=== PATIENT | male | born 1970 | race Caucasian/White ===

== ENCOUNTER → 2016-10-08 | Outpatient (REF) | payer BC ==
[~2016-10-08] MED LIST: /QUIN20TA PO; AUGM500T34 PO; BACIDCA PO; PERC7.5T12 PO; TYLE325T5 PO
[2016-10-08 12:17] LABS: ALBUMIN/GLOBULIN RATIO 1.38 (1.00-1.93); ALKALINE PHOSPHATASE 88 U/L (45-117); ALT/SGPT 31 U/L (12-78); ANION GAP 9 MEQ/L (8-16); AST/SGOT 16 U/L (15-37); BILIRUBIN,TOTAL 0.4 MG/DL (0.2-1.0); BLOOD UREA NITROGEN 22 MG/DL (7-18); CALCIUM LEVEL 8.9 MG/DL (8.5-10.1); CARBON DIOXIDE LEVEL 28 MEQ/L (21-32); CHLORIDE LEVEL 107 MEQ/L (98-107); CHOLESTEROL LEVEL 226 MG/DL (<200); CREATININE FOR GFR 0.99 MG/DL (0.70-1.30); GLOMERULAR FILTRATION RATE > 60.0 (>60); GLUCOSE, FASTING 121 MG/DL (70-105); POTASSIUM SERUM 4.4 MEQ/L (3.5-5.1); SODIUM LEVEL 144 MEQ/L (136-145); TOTAL PROTEIN 6.9 GM/DL (6.4-8.2); TRIGLYCERIDES LEVEL 213 MG/DL (<150)
== END ==
LOC: M LABDRAW1 11:21
PROVIDERS: ATTEND Emergency Medicine
DX: E78.2 Mixed hyperlipidemia (principal); R73.01 Impaired fasting glucose; N40.0 Benign prostatic hyperplasia without lower urinary tract symptoms
CPT/HCPCS: 36415; 80053; 80061; 83036; G0103

== ENCOUNTER → 2016-11-10 | Outpatient (CLI) | payer BC ==
[~2016-11-10] MED LIST changes: +LOSA50TA20 PO; +OMEP40CA2 PO
[2016-11-10 16:40] LABS: MEAN CORPUSCULAR HEMOGLOBIN 30.2 pg (27.0-33.0); MEAN CORPUSCULAR HGB CONC 34.9 g/dl (32.0-36.5); MEAN CORPUSCULAR VOLUME 86.6 fl (80.0-96.0); PLATELET COUNT, AUTOMATED 242 k/mm3 (150-450); RED CELL DISTRIBUTION WIDTH 12.7 % (11.5-14.5); WHITE BLOOD COUNT 10.1 K/mm3 (4.0-10.0)
[2016-11-10 16:49] LABS: ALBUMIN 3.8 GM/DL (3.2-5.2); ALBUMIN/GLOBULIN RATIO 1.41 (1.00-1.93); ALKALINE PHOSPHATASE 86 U/L (45-117); ALT/SGPT 29 U/L (12-78); ANION GAP 11 MEQ/L (8-16); AST/SGOT 12 U/L (15-37); BILIRUBIN,TOTAL 0.6 MG/DL (0.2-1.0); BLOOD UREA NITROGEN 21 MG/DL (7-18); CALCIUM LEVEL 8.1 MG/DL (8.5-10.1); CARBON DIOXIDE LEVEL 24 MEQ/L (21-32); CHLORIDE LEVEL 106 MEQ/L (98-107); CREATININE FOR GFR 1.09 MG/DL (0.70-1.30); GLOMERULAR FILTRATION RATE > 60.0 (>60); GLUCOSE, FASTING 124 MG/DL (70-105); POTASSIUM SERUM 3.4 MEQ/L (3.5-5.1); SODIUM LEVEL 141 MEQ/L (136-145); TOTAL PROTEIN 6.5 GM/DL (6.4-8.2)
[2016-11-11 09:43] LABS: CONTROL LINE MONO RF C INT CTR LINE PRESENT
[2016-11-13 00:06] LABS: Lyme Disease IgG/IgM Antibodie <0.91 ISR (0.00-0.90); Lyme Disease IgM Ab Quantitati <0.80 index (0.00-0.79)
== END ==
LOC: M ADAMS 13:28
PROVIDERS: ATTEND Physician Assistant Medical
DX: M79.1 Myalgia (principal)

== ENCOUNTER 2016-11-12 11:15 | Observation (INO) | payer BC ==
[~2016-11-12] VITALS: Ht 167.6 cm; Wt 90.7 kg
[~2016-11-12 11:15] MED LIST changes: -LOSA50TA20 PO; -OMEP40CA2 PO
[2016-11-12] MEDS ORDERED: OMEP40CA2 PO (11:39)
[2016-11-12] MEDS ORDERED: LOSA50TA20 PO (11:40)
[2016-11-12] MEDS ORDERED: NS 1,000 ML IV ONE ×4 (12:15→13:45)
[2016-11-12] MEDS ORDERED: ONDANSETRON 4MG/2ML VIAL (J2405) IV ONE (12:15)
[2016-11-12 13:11] LABS: BASO % 0.3 % (0.0-1.0); EOS # 0.1 K/mm3 (0.0-0.50); EOS % 0.7 % (0.0-3.0); LARGE UNSTAINED CELL # 0.2 K/mm3 (0.0-0.4); LARGE UNSTAINED CELL % 2.7 % (0.0-4.0); LYMPH # 0.8 K/mm3 (1.5-4.5); LYMPH % 9.6 % (24.0-44.0); MEAN CORPUSCULAR HEMOGLOBIN 30.6 pg (27.0-33.0); MEAN CORPUSCULAR HGB CONC 35.3 g/dl (32.0-36.5); MEAN CORPUSCULAR VOLUME 86.6 fl (80.0-96.0); MONO # 0.7 K/mm3 (0.0-0.8); NEUTROPHILS # 6.3 K/mm3 (1.8-7.7); NEUTROPHILS % 77.7 % (36.0-66.0); PLATELET COUNT, AUTOMATED 287 k/mm3 (150-450); RED CELL DISTRIBUTION WIDTH 12.8 % (11.5-14.5); WHITE BLOOD COUNT 8.1 K/mm3 (4.0-10.0)
[2016-11-12 13:14] LABS: ALBUMIN 4.5 GM/DL (3.2-5.2); ALBUMIN/GLOBULIN RATIO 0.92 (1.00-1.93); ALKALINE PHOSPHATASE 105 U/L (45-117); ALT/SGPT 32 U/L (12-78); AMYLASE 56 U/L (25-115); ANION GAP 13 MEQ/L (8-16); AST/SGOT 20 U/L (15-37); BILIRUBIN,DIRECT 0.1 MG/DL (0.0-0.2); BILIRUBIN,TOTAL 0.5 MG/DL (0.2-1.0); BLOOD UREA NITROGEN 41 MG/DL (7-18); CARBON DIOXIDE LEVEL 19 MEQ/L (21-32); CHLORIDE LEVEL 101 MEQ/L (98-107); CREATININE FOR GFR 3.92 MG/DL (0.70-1.30); GLOMERULAR FILTRATION RATE 17.6 (>60); GLUCOSE, FASTING 160 MG/DL (70-105); POTASSIUM SERUM 3.9 MEQ/L (3.5-5.1); SODIUM LEVEL 133 MEQ/L (136-145); TOTAL PROTEIN 9.4 GM/DL (6.4-8.2)
--- NOTE | 2016-11-12 14:06 | REP ---
AP PORTABLE CHEST: 11/12/2016 COMPARISON: 07/29/2013. CLINICAL HISTORY: Vomiting, diarrhea, abdominal pain. FINDINGS: Lungs are well inflated and without infiltrate, effusion, atelectasis or mass. The CP angle is sharply defined. There is no lateral pleural thickening or apical scarring. The heart, mediastinal and hilar contours are normal. Airway intact. No widening of the mediastinum. Bones unremarkable. No free air. IMPRESSION: 1. No acute cardiopulmonary change. Stable chest. Signed by Skyler Owens MD 11/12/2016 05:08 P
[2016-11-12] MEDS ORDERED: ACETAMINOPHEN TAB 650MG DOSE (2X325MG) PO PRN (14:15)
[2016-11-12] MEDS ORDERED: ONDANSETRON 4MG/2ML VIAL (J2405) IV PRN (14:15)
--- NOTE | 2016-11-12 14:21 | REP ---
CT abdomen and pelvis without IV or bowel contrast: Comparison is 06/26/2013. The patient is a history of ulcerative colitis. The visualized lung calabrese are unremarkable. The unenhanced hepatic parenchyma is homogeneous and unremarkable. There is cholelithiasis without evidence of acute cholecystitis. This is unchanged. There is no biliary duct dilatation. The pancreas and spleen are normal size and unremarkable. The adrenals and kidneys are unchanged. There is a parapelvic cyst at the lower pole of the right kidney and there is a nonobstructive renal calculus at the lower pole right kidney. These are unchanged. There is no hydronephrosis on the right on the left. The abdominal aorta is unremarkable. The bowel pattern is unusual. There is an anastomotic surgical suture ring in the right lower quadrant and there are longitudinal sutures along the bowel in the rectosigmoid area. This is unchanged. With the history of ulcerative colitis the the patient may have had a total colectomy and a J pouch surgery. There is a surgical scar in the abdominal wall in the right lower quadrant suggestive of ileostomy has been taken down. There is no bowel distension or obstruction. There is no ascites. There is no adenopathy. Pelvis: The bladder is unremarkable. There is no adenopathy or ascites. Impression: Postsurgical changes as described. No evidence of bowel distension or obstruction. No ascites. No inflammatory changes in the mesentery. Nonobstructive right renal calculus. Right renal parapelvic cyst. These are unchanged. Cholelithiasis without gallbladder dilatation or the biliary duct dilatation. Signed by Nazario Guerrero MD 11/12/2016 02:12 P
--- NOTE | 2016-11-12 15:06 | HPE ---
DATE OF ADMISSION: 11/12/2016 PRIMARY CARE PROVIDER: Dr. Bergman CODE STATUS: FULL CODE. CHIEF COMPLAINT: Myalgia, generalized weakness, nausea, vomiting, unable to tolerate oral intake at home. HISTORY OF PRESENT ILLNESS: This is a pleasant 46-year-old male patient of Dr. Hugo Bergman who presents to the emergency department with history of nausea, vomiting, and diarrhea for the last 3-4 days, progressively worse. He has had some subjective chills, no rigors, but has had myalgia and generalized weakness today. He is unable to definitively state that he had a fever at home, but felt that he did have some subjective symptoms of fever. He denies any hematochezia or melena. He does have a history of ulcerative colitis which she had a total colectomy done in 1992 and has had followup biopsies of perirectal abscess that was done in 2008 and has not had any problems since then. He denies lightheadedness, dizziness, fainting, no loss of consciousness. Denies productive sputum, cough, or hemoptysis. PAST MEDICAL HISTORY: 1. Hypertension. 2. Ulcerative colitis. PAST SURGICAL HISTORY: 1. Total colon resection in 1992. 2. 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 FAMILY HISTORY: Noncontributory. SOCIAL HISTORY: The patient drinks alcohol occasionally with one to two drinks per week. Denies tobacco use. Denies illicit drug use. No recent travel. No sick contacts. ALLERGIES: 1. DOXYCYCLINE. HOME MEDICATIONS: - omeprazole 40 mg twice a day - losartan 50 mg daily REVIEW OF SYSTEMS: CONSTITUTIONAL: Subjective fevers, chills, but no rigors. Has had decreased oral intake. Diarrhea as outlined above. HEENT: Denies headache, lightheaded, dizziness, blurry vision, double vision, tinnitus. Denies any difficulty with speech or swallow. PULMONARY: Denies productive sputum, cough, or hemoptysis. CARDIOVASCULAR: Denies chest pain, paroxysmal nocturnal dyspnea (PND), orthopnea. No lower extremity edema. GASTROINTESTINAL (GI): He has had nausea and vomiting as indicated with loose stool and diarrhea, but denies any hematochezia or melena. GENITOURINARY (): No dysuria, frequency or hematuria. MUSCULOSKELETAL: Denies bone, muscles, or joint pain, swelling or erythema, but has had some vague myalgia symptoms for the last few days. NEURO: Denies paresthesias or paralysis. LYMPHATICS: History of weight loss, night sweats. Denies lumps, bumps, swelling in the neck, axilla or groin. ENDOCRINE: Negative for diabetes. Negative for thyroid disorder. HEMATOLOGY: Negative for bleeding or bruising disorder. No prior history of venous thromboembolism. ONCOLOGY: No history of cancer. PSYCHIATRIC: Negative for depression and suicidal ideation. No audiovisual hallucinations. 10-point review of system is complete and pertinent positives are listed in history of present illness above. PHYSICAL EXAMINATION: VITAL SIGNS: Temperature 97.6, pulse 96, respiratory rate 16 and nonlabored, blood pressure 134/81, SpO2 is 93% on room air. GENERAL: The patient appears to be in no acute distress. He is alert and oriented, pleasant talk to. HEENT: Head is atraumatic, normocephalic. Eyes pupils equal, round and reactive to light and accommodation. Throat clear. NECK: Supple neck. Otherwise no thyromegaly. LUNGS: Clear to auscultation. HEART: Regular rate and rhythm. ABDOMEN: Slightly hyperactive bowel sounds. No significant tenderness. No rebound. No hepatosplenomegaly noted. EXTREMITIES: No edema. No calf tenderness. LABORATORY DATA: White count is 8.1, hemoglobin is 19.8, platelets are 287. Sodium is 133, potassium 3.9, chloride 101, bicarb 19, anion gap 13, BUN is 41, creatinine 3.92, glucose 116, lactic acid is 2.3, calcium is 10, bilirubin is 0.5, AST 20, ALT 32, alkaline phosphatase 105. CK-MB is pending at this time. Albumin is 4.5, lipase is 190. Urinalysis cloudy, 2+ protein, 1+ bilirubin, 15 WBCs, 2+ bacteria. Urine culture pending at this time. Blood cultures pending time two. Respiratory panel is pending as well. 12 lead EKG sinus rhythm with no acute ST-T wave abnormalities noted. Ventricular rate is 88 beats per minute. The ER physician did order a cardiac marker panel for suspected rhabdomyolysis. That is pending at this time; however, the patient does not have any chest pain or any acute ST-T wave changes and likely a good candidate for the medical/surgical floor. Chest x-ray no acute cardiopulmonary findings. CT abdomen and pelvis postsurgical changes related to total colectomy. No evidence of bowel distension or obstruction. No ascites. No laboratory changes. A nonobstructive right renal calculus is noted. Right renal parapelvic cyst is noted. These are unchanged from previous studies. Cholelithiasis without gallbladder dilation or biliary duct dilation was noted. IMPRESSION: Mr. Cowart is a pleasant 46-year-old patient of Dr. Bergman who presents to the emergency department for worsening symptoms of nausea, vomiting, diarrhea and myalgia for the last three days. He does appear to have some acute kidney injury related to significant dehydration with hemoconcentration noted on his CBC. He is getting multiple fluid boluses in the emergency department. His blood pressure is stable. He is hemodynamically stable. He does have an elevated lactic acid, which we can repeat a few hours. At any rate, we will admit him to medical/surgical for further care and observe him overnight. PROBLEM LIST: 1. Sepsis. 2. Gastroenteritis. 3. Acute kidney injury with dehydration. 4. History of ulcerative colitis status post colectomy. 5. Hypertension. Will hold his home medications for now. 6. History of occasional alcohol use. PLAN: The patient admitted will be admitted to medical/surgical per Dr. Chau. IV fluid bolus times three in the emergency department, then will proceed with 150 mL an hour of normal saline, Zofran IV p.r.n. for nausea. Check respiratory panel, GI panel, urine culture, blood cultures are pending. Deep vein thrombosis (DVT) prophylaxis with heparin. I do suspect this is likely related to underlying viral cause with viral gastroenteritis. He is admitted as observation overnight with fluid hydration. DISPOSITION: Will anticipate home discharge tomorrow morning if he is doing well and his kidney function appears to be trending back towards baseline. If not, if his creatinine is still severely elevated we may want to consider a nephrology consult. For the meantime, since this does appear to be related to acute event with nausea, vomiting, diarrhea, I did hold off on ordering any urine electrolytes, or renal ultrasound. Will see how he responds to conservative management with IV fluids.
[2016-11-12] MEDS ORDERED: OMEPRAZOLE 20 MG CAP PO ONE (16:30)
[2016-11-12 16:45] VITALS: BP 141/72
[2016-11-12] MEDS: HEPARIN SOD (PORCINE) 5000 UNITS/ML VIAL SQ SCH ×2 (16:59→20:26)
[2016-11-12] MEDS: NS 1,000 ML IV SCH ×2 (17:03→20:44)
--- NOTE | 2016-11-12 18:14 | ECGEPIP ---
Stationary ECG Study [facility] - ED Test Date: 2016-11-12 Pat Name: GERARDO MARIE Department: Room: [place] [address] Gender: M Contour Grinder: shailesh : 1970 Requested By: Gamaliel Benavides Order Number: [id number] Reading MD: Omar Swann Measurements Intervals Gregory Rate: 88 P: 52 IL: 187 QRS: 40 QRSD: 74 T: 23 QT: 334 QTc: 406 Interpretive Statements SINUS RHYTHM WITH SINUS ARRHYTHMIA POSSIBLE LEFT ATRIAL ENLARGEMENT POSSIBLE PRIOR INFERIOR INFARCT NO PRIORS Electronically Signed On 11-12-2016 18:13:51 EDT by Omar Swann
[2016-11-12] MEDS: OMEPRAZOLE 20 MG CAP PO SCH (20:24)
[2016-11-12 22:00] VITALS: BP 129/75
[2016-11-13] MEDS: NS 1,000 ML IV SCH ×4 (03:24→20:39)
[2016-11-13 06:00] VITALS: BP 112/75
[2016-11-13] MEDS: HEPARIN SOD (PORCINE) 5000 UNITS/ML VIAL SQ SCH ×3 (06:35→20:38)
[2016-11-13 07:21] LABS: MEAN CORPUSCULAR HEMOGLOBIN 30.5 pg (27.0-33.0); MEAN CORPUSCULAR HGB CONC 35.2 g/dl (32.0-36.5); MEAN CORPUSCULAR VOLUME 86.7 fl (80.0-96.0); RED CELL DISTRIBUTION WIDTH 12.9 % (11.5-14.5); WHITE BLOOD COUNT 4.4 K/mm3 (4.0-10.0)
[2016-11-13 07:47] LABS: CREATININE FOR GFR 1.5 MG/DL (0.70-1.30); GLOMERULAR FILTRATION RATE 53.4 (>60); POTASSIUM SERUM 3.5 MEQ/L (3.5-5.1)
[2016-11-13] MEDS: OMEPRAZOLE 20 MG CAP PO SCH ×2 (08:23→20:39)
[2016-11-13 08:42] LABS: ALBUMIN/GLOBULIN RATIO 0.91 (1.00-1.93); BILIRUBIN,TOTAL 0.4 MG/DL (0.2-1.0); MAGNESIUM LEVEL 1.9 MG/DL (1.8-2.4); TOTAL PROTEIN 6.3 GM/DL (6.4-8.2)
--- NOTE | 2016-11-13 12:04 | IPNPDOC ---
Text Note Date of Service The patient was seen on 11/13/16. NOTE Subjective: Patient is a 46 year old male with a PMHx HTN and UC (s/p colectomy) who presented to the ER with complaitns of generalized weakness, nausea, vomiting and increased frequency of stools. He was found to have Acute kidney injury and his GI panel was positive for Astrovirus (Norovirus). Patient was seen and examined at the bedside. Clinically he notes that his nausea and vomiting have resolved and that his diarrhea has decreased in frequency. Objective: Vitals (See below) General: Lying in bed, no acute distress, comfortable, AAOx3 HEENT: NC, AT CVS: RRR, +S1S2 Lungs: Fair air entry b/l, -w/r/r Abdomen: Soft, ND, NT, +BSx4 Extremities: +PPx4, - Edema, - Calf tenderness Assessment and plan: 1. Nausea, vomiting and diarrhea - likely 2/2 gastroenteritis - likely 2/2 astrovirus - Clinically improving - Physical exam un-revealing - Lactic acidosis resolved - GI Panel positive for astrovirus - c/w IV fluid support and zofran for nausea 2. Acute kidney injury - likely 2/2 pre-renal etiology - Cr on admission was 3.92; has trended down significantly - Will c/w IV fluid resuscitation until normalized 3. History of ulcerative colitis status post colectomy 4. Hypertension - will continue to hold BP medications 5. History of occasional alcohol use - c/w Multivitamins, Thiamine and Folate 6. GI prophyalxis - c/w omeprazole 7. DVT prophylaxis - c/w Heparin VS,Fishbone, I+O VS, Fishbone, I+O Laboratory Tests 11/12/16 12:39 Red Blood Count 6.46 H, Mean Corpuscular Volume 86.6, Mean Corpuscular Hemoglobin 30.6, Mean Corpuscular Hemoglobin Concent 35.3, Red Cell Distribution Width 12.8, Neutrophils (%) (Auto) 77.7 H, Lymphocytes (%) (Auto) 9.6 L, Monocytes (%) (Auto) 9.0 H, Eosinophils (%) (Auto) 0.7, Basophils (%) ( Auto) 0.3, Neutrophils # (Auto) 6.3, Lymphocytes # (Auto) 0.8 L, Monocytes # ( Auto) 0.7, Eosinophils # (Auto) 0.1, Basophils # (Auto) 0.0 11/13/16 07:02 Red Blood Count 4.99, Mean Corpuscular Volume 86.7, Mean Corpuscular Hemoglobin 30.5, Mean Corpuscular Hemoglobin Concent 35.2, Red Cell Distribution Width 12.9 , Calcium Level 8.0 #L, Aspartate Amino Transf (AST/SGOT) 17, Alanine Aminotransferase (ALT/SGPT) 21, Alkaline Phosphatase 67, Total Bilirubin 0.4, Total Protein 6.3 #L, Albumin 3.0 #L Vital Signs Date Time Temp Pulse Resp B/P Pulse Ox O2 Delivery O2 Flow Rate FiO2 11/13/16 06:00 98.3 66 18 112/75 94 Room Air I&O- Last 24 Hours up to 6 AM 11/13/16 06:00 Intake Total 600 ml Output Total 800 ml Balance -200 ml IGLESIA SIMMONS MD Nov 13, 2016 12:04
[2016-11-13 22:00] VITALS: BP 121/79
[2016-11-14] MEDS: HEPARIN SOD (PORCINE) 5000 UNITS/ML VIAL SQ SCH (05:02)
[2016-11-14] MEDS: NS 1,000 ML IV SCH (05:18)
[2016-11-14 06:00] VITALS: BP 106/55
[2016-11-14 07:06] LABS: MEAN CORPUSCULAR HEMOGLOBIN 30.1 pg (27.0-33.0); MEAN CORPUSCULAR HGB CONC 34.5 g/dl (32.0-36.5); MEAN CORPUSCULAR VOLUME 87.2 fl (80.0-96.0); RED CELL DISTRIBUTION WIDTH 12.8 % (11.5-14.5); WHITE BLOOD COUNT 5.2 K/mm3 (4.0-10.0)
[2016-11-14 07:12] LABS: ANION GAP 4 MEQ/L (8-16); BLOOD UREA NITROGEN 17 MG/DL (7-18); CALCIUM LEVEL 8.6 MG/DL (8.5-10.1); CARBON DIOXIDE LEVEL 28 MEQ/L (21-32); CHLORIDE LEVEL 112 MEQ/L (98-107); GLOMERULAR FILTRATION RATE > 60.0 (>60); GLUCOSE, FASTING 105 MG/DL (70-105); POTASSIUM SERUM 3.8 MEQ/L (3.5-5.1); SODIUM LEVEL 144 MEQ/L (136-145)
[2016-11-14] MEDS: OMEPRAZOLE 20 MG CAP PO SCH (07:59)
--- NOTE | 2016-11-14 14:55 | DSES ---
DATE OF ADMISSION: 11/12/2016 DATE OF DISCHARGE: 11/14/2016 ATTENDING PHYSICIAN: Dr. Joseph Chau PRIMARY CARE PHYSICIAN: Dr. Hugo Bergman REFERRING PHYSICIAN: None. CONSULTING PHYSICIAN: None. CONDITION ON DISCHARGE: Stable. FINAL DIAGNOSIS: 1. Nausea, vomiting, diarrhea, likely secondary to gastroenteritis. 2. Acute kidney injury. PROCEDURES: None. HISTORY OF PRESENT ILLNESS: The patient is a 36-year-old male with a past medical history of hypertension, ulcerative colitis status post colectomy who presented to the emergency room with complaints of generalized weakness, nausea, vomiting, and increased frequency of stools. He was found to have acute kidney injury and his GI panel was positive for astrovirus. HOSPITAL COURSE: 1. Nausea, vomiting, and diarrhea likely secondary to gastroenteritis, likely secondary to astrovirus. Clinically he has been improving. Physical examination is unrevealing lactic acidosis has resolved. GI panel was positive for astrovirus. Continue with IV fluid support and Zofran for nausea. 2. Acute kidney injury. Likely secondary to prerenal etiology. Creatinine on admission was 3.92 and has trended down significantly and has now normalized. He has received aggressive IV fluid hydration during his hospitalization. 3. History of ulcerative colitis status post colectomy. 4. Hypertension. Blood pressure medications continue to be on hold and upon discharge his blood pressure medications remained on hold. 5. History of occasional alcohol use. Continue with multivitamins, thymine, and folate. 6. Gastrointestinal (GI) prophylaxis. Continue with omeprazole. 7. Deep venous thrombosis (DVT) prophylaxis. Continue with heparin. DISCHARGE MEDICATIONS: Patient was discharged home with the following medication list: - omeprazole 40 mg by mouth twice a day Medications which were stopped include: - losartan 50 mg by mouth every day DISCHARGE INSTRUCTIONS: Patient has been advised to followup with his primary care provider within the next 7 days. He has been advised to remain compliant with treatment and medications and return to the emergency room if he experiences any problems. TIME SPENT ON DISCHARGE: 35 minutes.
== END 2016-11-14 11:30 | disposition left against medical advice (07) ==
LOC: M ED 12:57 → M ED INP 14:04 → M MS5PR 16:35
PROVIDERS: ADMIT Hospitalist; ATTEND Internal Medicine
DX: A08.11 Acute gastroenteropathy due to Norwalk agent (principal); N17.9 Acute kidney failure, unspecified; E86.0 Dehydration; K51.90 Ulcerative colitis, unspecified, without complications; K21.9 Gastro-esophageal reflux disease without esophagitis; I10 Essential (primary) hypertension; Z88.1 Allergy status to other antibiotic agents; Z79.899 Other long term (current) drug therapy
CPT/HCPCS: 36415; 71010; 74176; 80048; 80053; 80076; 81001; 82150; 82550; 82553; 83605; 83690; 83735; 85025; 85027; 87040; 87086; 87486; 87507; 87581; 87633; 87798; 93005; 93041; 96372; 99285; J2405

== ENCOUNTER → 2017-10-14 | Outpatient (REF) | payer BC ==
[2017-10-14 12:46] LABS: ALBUMIN/GLOBULIN RATIO 1.54 (1.00-1.93); ALKALINE PHOSPHATASE 89 U/L (45-117); ALT/SGPT 38 U/L (12-78); ANION GAP 8 MEQ/L (8-16); AST/SGOT 15 U/L (7-37); BILIRUBIN,TOTAL 0.5 MG/DL (0.2-1.0); BLOOD UREA NITROGEN 21 MG/DL (7-18); CALCIUM LEVEL 8.9 MG/DL (8.5-10.1); CARBON DIOXIDE LEVEL 29 MEQ/L (21-32); CHLORIDE LEVEL 105 MEQ/L (98-107); CHOLESTEROL LEVEL 204 MG/DL (<200); CHOLESTEROL RISK RATIO 3.849 (<5); CREATININE FOR GFR 1.07 MG/DL (0.70-1.30); GLOMERULAR FILTRATION RATE > 60.0 (>60); GLUCOSE, FASTING 119 MG/DL (70-100); HDL CHOLESTEROL 53 MG/DL (>40); LDL CHOLESTEROL 112.8 MG/DL (<100); NON-HDL-C 151 MG/DL; POTASSIUM SERUM 4.5 MEQ/L (3.5-5.1); PSA SCREENING 1.48 NG/ML (< 4.0); SODIUM LEVEL 142 MEQ/L (136-145); TOTAL PROTEIN 6.6 GM/DL (6.4-8.2); TRIGLYCERIDES LEVEL 191 MG/DL (<150)
[2017-10-14 13:08] LABS: ESTIMATED AVERAGE GLUCOSE 120 MG/DL (60-110); HEMOGLOBIN A1c 5.8 %
== END ==
LOC: M LABDRAW1 11:52
DX: E78.2 Mixed hyperlipidemia (principal); R73.01 Impaired fasting glucose; N40.0 Benign prostatic hyperplasia without lower urinary tract symptoms
CPT/HCPCS: 80053

== ENCOUNTER → 2018-02-04 | Outpatient (REF) | payer BC | LOC: M LAB REF 12:26 | DX: J02.9 Acute pharyngitis, unspecified (principal) | CPT/HCPCS: 87081 ==

== ENCOUNTER → 2018-09-02 | Outpatient (CLI) | payer BC ==
[~2018-09-02] MED LIST changes: +LOSA50TA88 PO; +OMEP40CA2 PO
[2018-09-02 13:08] LABS: BASO # 0.1 10^3/uL (0.0-0.2); BASO % 0.7 % (0.0-1.0); EOS # 0.2 10^3/uL (0.0-0.50); EOS % 2.5 % (0.0-3.0); HEMATOCRIT 42.3 % (42.0-52.0); HEMOGLOBIN 14.4 g/dl (13.5-17.5); LYMPH # 1.5 10^3/uL (1.5-4.5); LYMPH % 17.8 % (24.0-44.0); MEAN CORPUSCULAR HEMOGLOBIN 30.2 pg (27.0-33.0); MEAN CORPUSCULAR VOLUME 88.7 fl (80.0-96.0); MONO # 0.8 10^3/uL (0.0-0.8); MONO % 9.6 % (0.0-5.0); NEUTROPHILS # 5.9 10^3/uL (1.8-7.7); PLATELET COUNT, AUTOMATED 270 10^3/uL (150-450); RED BLOOD COUNT 4.77 10^6/uL (4.30-6.10); WHITE BLOOD COUNT 8.6 10^3/uL (4.0-10.0)
[2018-09-02 13:25] LABS: MONO REFLEX EBV COMP NEGATIVE (NEGATIVE)
[2018-09-04 00:10] LABS: EBV VIRAL CAPSID AG IgG 71.1 U/mL (0.0-17.9); EBV VIRAL CAPSID AG IgM <36.0 U/mL (0.0-35.9)
== END ==
LOC: M LABDRWAD 08:38
PROVIDERS: ATTEND Physician Assistant Medical
DX: J02.9 Acute pharyngitis, unspecified (principal)

== ENCOUNTER → 2020-06-23 | Outpatient (CLI) | payer BC ==
[~2020-06-23] MED LIST changes: -/QUIN20TA PO; +ACCU1TAB2 PO; +ASCO1TAB3 PO; +B-12100T2 PO; +D31000TA2 PO; +FISH1000 PO; -OMEP40CA2 PO; +OMEP40CA97 PO; +SM F10002 PO; +VITA100T59 PO
== END ==
LOC: M LABSMTC 10:22
PROVIDERS: ATTEND Anesthesiology
DX: Z01.812 Encounter for preprocedural laboratory examination (principal); Z20.828 Contact with and (suspected) exposure to other viral communicable diseases
CPT/HCPCS: C9803; U0003

== ENCOUNTER 2020-06-28 06:58 | Day surgery (SDC) | payer BC ==
[~2020-06-28] VITALS: Ht 170.2 cm; Wt 96.6 kg
[~2020-06-28 06:58] MED LIST changes: +NS 1,000 ML IV ONE
[2020-06-28] MEDS ORDERED: propofoL 200 MG/20 ML VIAL As Ordered ONE (07:11)
[2020-06-28] MEDS ORDERED: LIDOCAINE 2% 100MG/5ML SDV (FOR ANES.) As Ordered ONE (07:11)
--- NOTE | 2020-06-28 08:29 | ROOR ---
Patient Name: Phil Cowart Procedure Date: 06/28/2020 7:59 AM Date of : 1970 Age: 50 Room: [facility] Gender: Male Note Status: Finalized Procedure: Colonoscopy + biopsies at ileorectal anastomosis. Indications: Follow-up of ulcerative colitis Providers: Jaya Mcmullen MD Referring MD: Daja CANO DO Requesting Provider: Medicines: Monitored Anesthesia Care Complications: No immediate complications. Procedure: Pre-Anesthesia Assessment: - The heart rate, respiratory rate, oxygen saturations, blood pressure, adequacy of pulmonary ventilation, and response to care were monitored throughout the procedure. The Colonoscope was introduced through the anus and advanced to the rectum to examine an anastomosis. This was the intended extent. The colonoscopy was performed without difficulty. The patient tolerated the procedure well. The quality of the bowel preparation was excellent. Findings: The perianal and digital rectal examinations were normal. Non-bleeding internal hemorrhoids were found during retroflexion. The hemorrhoids were small and Grade I (internal hemorrhoids that do not prolapse). Background biopsies were taken for histology with a cold forceps from the rectum. These biopsy specimens were sent to Pathology. The exam was otherwise without abnormality. Impression: - Non-bleeding internal hemorrhoids. - The examination was otherwise normal. - Background biopsies were taken from the rectum. - The examination was otherwise normal. Recommendation: - Patient has a contact number available for emergencies. The signs and symptoms of potential delayed complications were discussed with the patient. Return to normal activities tomorrow. Written discharge instructions were provided to the patient. - Discharge patient to home. - Continue present medications. - Await pathology results. - Telephone GI clinic for pathology results in 1 week. - Return to referring physician. - The findings and recommendations were discussed with the patient. Jaya Mcmullen MD Jaya Mcmullen MD 06/28/2020 8:28:58 AM Electronically signed by Jaya Mcmullen MD Number of Addenda: 0 Note Initiated On: 06/28/2020 7:59 AM Estimated Blood Loss: Estimated blood loss: none.
[2020-06-28 08:45] VITALS: BP 119/59
== END 2020-06-28 08:48 | disposition home or self-care (01) ==
LOC: M OPP 06:58
PROVIDERS: ATTEND Internal Medicine Gastroenterology
DX: K51.90 Ulcerative colitis, unspecified, without complications (principal); K64.0 First degree hemorrhoids; I10 Essential (primary) hypertension; Z79.899 Other long term (current) drug therapy; Z88.1 Allergy status to other antibiotic agents

== ENCOUNTER → 2022-01-11 | Outpatient (REF) | payer BC ==
[~2022-01-11] MED LIST changes: -D31000TA2 PO; +LOSA50TA28 PO; -LOSA50TA88 PO; -NS 1,000 ML IV ONE; +OMEP40CA4 PO; -OMEP40CA97 PO; +VITA100093 PO
== END ==
LOC: M LAB REF 16:06
PROVIDERS: ATTEND Physician Assistant
DX: R19.7 Diarrhea, unspecified (principal)

== ENCOUNTER → 2025-08-02 | Outpatient (CLI) | payer OTHER ==
[~2025-08-02] MED LIST changes: +ELDE350C PO; +FLAX1CAP5 PO; +OMEGCAP4 PO; +OMEP-173 PO
[2025-08-02 13:46] LABS: BASO # 0.1 10^3/uL (0.0-0.2); BASO % 0.9 % (0.0-1.0); EOS # 0.2 10^3/uL (0.0-0.5); EOS % 2.5 % (0.0-3.0); LYMPH # 1.4 10^3/uL (1.5-5.0); LYMPH % 19.7 % (24.0-44.0); MONO # 0.7 10^3/uL (0.0-0.8); MONO % 9.7 % (2.0-8.0); NEUTROPHILS # 4.6 10^3/uL (1.5-8.5); NEUTROPHILS % 66.9 % (36.0-66.0); PLATELET COUNT, AUTOMATED 275 10^3/uL (150-450)
[2025-08-02 13:48] LABS: ALT/SGPT 36 U/L (7.0-40); AST/SGOT 24 U/L (<34); CALCIUM LEVEL 9.0 MG/DL (8.5-10.1); CARBON DIOXIDE LEVEL 28 MMOL/L (20-31); CHLORIDE LEVEL 107 MMOL/L (98-107); CHOLESTEROL LEVEL 188 MG/DL (<200); CHOLESTEROL RISK RATIO 3.82 (<5); CREATININE FOR GFR 0.96 MG/DL (0.70-1.30); GLOMERULAR FILTRATION RATE > 90.0 (>56); LDL CHOLESTEROL 113.2 MG/DL (<100); NON-HDL-C 138.8 MG/DL; POTASSIUM SERUM 4.6 MMOL/L (3.5-5.1); SODIUM LEVEL 142 MMOL/L (136-145); TRIGLYCERIDES LEVEL 128 MG/DL (<150)
[2025-08-02 13:49] LABS: FREE T4 1.22 NG/DL (0.89-1.76)
[2025-08-02 14:02] LABS: ESTIMATED AVERAGE GLUCOSE 120.0 MG/DL (60-110)
== END ==
LOC: M PLALAB 09:49
PROVIDERS: ATTEND Family Medicine
DX: E78.2 Mixed hyperlipidemia (principal); I10 Essential (primary) hypertension; E55.9 Vitamin D deficiency, unspecified